=== PATIENT | female | born 1965 | race Caucasian/White ===

== ENCOUNTER 2019-09-19 09:08 | Observation (INO) | payer OTHER, SELFPAY | END 2019-09-20 13:18 | disposition home or self-care (01) | PROVIDERS: Admitting Provider Obstetrics & Gynecology; Family Provider Family Medicine; Visit Provider Obstetrics & Gynecology | DX: N95.0 Postmenopausal bleeding (principal); D25.9 Leiomyoma of uterus, unspecified; K21.9 Gastro-esophageal reflux disease without esophagitis | CPT/HCPCS: 36415; 58262; 80053; 81001; 85025; 85027; 86850; 86900; 86901; 88307; 96374; G0378 ×113; J0131; J1100; J1885 ×2; J2001; J2250; J2405; J2704; J3010; J3490 ×3 ==

== ENCOUNTER → 2019-11-02 15:22 | Outpatient (BNVA) | payer OTHER, SELFPAY | PROVIDERS: Family Provider Family Medicine; PCP Family Medicine; Visit Provider Obstetrics & Gynecology | DX: R31.9 Hematuria, unspecified (principal); Z48.89 Encounter for other specified surgical aftercare; N89.8 Other specified noninflammatory disorders of vagina | CPT/HCPCS: 84315; 87086 ==

== ENCOUNTER → 2019-11-16 13:37 | Outpatient (BNVA) | payer OTHER, SELFPAY | PROVIDERS: Family Provider Family Medicine; PCP Family Medicine; Referring Provider Obstetrics & Gynecology; Visit Provider Obstetrics & Gynecology | DX: R31.9 Hematuria, unspecified (principal) | CPT/HCPCS: 81003 ==

== ENCOUNTER → 2020-01-14 14:10 | Outpatient (BNVA) | payer OTHER, SELFPAY | PROVIDERS: Family Provider Family Medicine; PCP Family Medicine; Visit Provider Nurse Practitioner Family | DX: N39.9 Disorder of urinary system, unspecified (principal); R31.29 Other microscopic hematuria | CPT/HCPCS: 81001 ==

== ENCOUNTER → 2020-01-25 11:49 | Outpatient (BNVA) | payer OTHER, SELFPAY | PROVIDERS: Family Provider Family Medicine; PCP Family Medicine; Visit Provider Urology | DX: R31.29 Other microscopic hematuria (principal) | CPT/HCPCS: 88112 ==

== ENCOUNTER → 2020-04-23 15:17 | Outpatient (BNVA) | payer OTHER, SELFPAY | PROVIDERS: Family Provider Family Medicine; PCP Family Medicine; Visit Provider Urology | DX: R31.29 Other microscopic hematuria (principal) | CPT/HCPCS: 81001 ==

== ENCOUNTER 2020-07-03 14:57 | Outpatient (CLI) | payer OTHER, SELFPAY ==
--- NOTE | 2020-07-03 15:04 | MM_ITS ---
WS: [id number] BILATERAL SCREENING DIGITAL MAMMOGRAM WITH CAD HISTORY: SCREENING COMPARISON: 05/11/2019 and 04/28/2018 and 04/26/2017 Bilateral CC and MLO views submitted. Computer aided detection analyzed. Breast composition: There are scattered areas of fibroglandular density. No suspicious masses, microc alcifications or architectural distortion. Stable nodule in the central LEFT breast. MM/[id number] IMPRESSION: BI-RADS: 2-Benign FOLLOW UP: 1 Year Follow-up
== END 2020-07-03 14:58 | disposition home or self-care (01) ==
LOC: RADSHAW 15:01
PROVIDERS: PCP Family Medicine; Visit Provider Family Medicine
DX: Z12.31 Encounter for screening mammogram for malignant neoplasm of breast (principal)
CPT/HCPCS: 77067

== ENCOUNTER 2021-08-10 15:10 | Outpatient (CLI) | payer OTHER, SELFPAY ==
--- NOTE | 2021-08-10 15:21 | MM_ITS ---
WS: [id number] BILATERAL SCREENING DIGITAL MAMMOGRAM WITH CAD HISTORY: SCREENING COMPARISON: 07/03/2020 and 05/11/2019 Bilateral CC and MLO views submitted. Computer aided detection analyzed. Breast composition: There are scattered areas of fibroglandular density. No suspicious masses, microc alcifications or architectural distortion. 8mm nodule in the posterior LEFT breast central to the nip ple is unchanged. MM/[id number] IMPRESSION: BI-RADS: 2-Benign FOLLOW UP: 1 Year Follow-up
== END 2021-08-10 15:11 | disposition home or self-care (01) ==
LOC: RADSHAW 15:12
PROVIDERS: PCP Electrodiagnostic Medicine; Visit Provider Electrodiagnostic Medicine
DX: Z12.31 Encounter for screening mammogram for malignant neoplasm of breast (principal)
CPT/HCPCS: 77067

== ENCOUNTER 2022-09-03 14:56 | Outpatient (CLI) | payer OTHER, SELFPAY ==
--- NOTE | 2022-09-03 15:12 | MM_ITS ---
WS: [id number] BILATERAL 3D TOMOSYNTHESIS DIGITAL SCREENING MAMMOGRAPHY WITH CAD CLINICAL INFORMATION: SCREENING HISTORY: Screening mammogram. No current complaints. COMPARISON: September 03, 2022 TECHNIQUE: Bilateral CC and MLO views. FINDINGS: Scattered fibroglandular densities bilaterally. No suspicious focal mass, asymmetry, calcifications, or architectural distortion. No evidence of malignancy. Lucent centered calcification LEFT breast. MM/[place] [id number] IMPRESSION: BI-RADS: 2-Benign FOLLOW UP: 1 Year Follow-up Recommend return to annual screening mammography.
== END 2022-09-03 14:57 | disposition home or self-care (01) ==
PROVIDERS: PCP Electrodiagnostic Medicine; Visit Provider Electrodiagnostic Medicine
DX: Z12.31 Encounter for screening mammogram for malignant neoplasm of breast (principal)
CPT/HCPCS: 77063; 77067

== ENCOUNTER → 2023-05-30 15:00 | Outpatient (BNVA) | payer OTHER, SELFPAY | PROVIDERS: PCP Electrodiagnostic Medicine; Visit Provider Obstetrics & Gynecology | DX: R30.0 Dysuria (principal) | CPT/HCPCS: 87086 ==

== ENCOUNTER 2023-09-09 13:42 | Outpatient (CLI) | payer OTHER, SELFPAY ==
--- NOTE | 2023-09-09 13:50 | MM_ITS ---
WS: [id number] BILATERAL 3D TOMOSYNTHESIS DIGITAL SCREENING MAMMOGRAPHY WITH CAD CLINICAL INFORMATION: SCREENING HISTORY: Screening mammogram. No current complaints. COMPARISON: 2021 TECHNIQUE: Bilateral CC and MLO views. FINDINGS: Scattered fibroglandular densities bilaterally. No suspicious focal mass, asymmetry, calcifications, or architectural distortion. No evidence of malignancy. Lucent centered calcification LEFT breast. St able nodular densities LEFT breast. IMPRESSION: MM/[place] [id number] BI-RADS: 2-Benign FOLLOW UP: 1 Year Follow-up Recommend return to annual screening mammography.
== END 2023-09-09 13:43 | disposition home or self-care (01) ==
LOC: RAD 13:43
PROVIDERS: PCP Electrodiagnostic Medicine; Visit Provider Electrodiagnostic Medicine
DX: Z12.31 Encounter for screening mammogram for malignant neoplasm of breast (principal)
CPT/HCPCS: 77063; 77067

== ENCOUNTER 2024-06-26 07:36 | Outpatient (CLI) | payer OTHER, SELFPAY ==
--- NOTE | 2024-06-26 07:46 | MR_ITS ---
WS: [id number] MRI BRAIN WITH HIGH-RESOLUTION IMAGING THROUGH THE INTERNAL AUDITORY CANALS WITHOUT AND WITH CONTRAST HISTORY: HEARING LOSS COMPARISON: None available. TECHNIQUE: Multiplanar, multisequence imaging is performed through the brain. Additional 3 mm imaging performed in multiple planes through the internal auditory canal. Postcontrast imaging with 14 ml's of MultiHance. No acute intracranial hemorrhage, midline shift, edema or mass effect. No prior infarct or volume loss. Normal hippocampal formations. Ventricles and extra-axial spaces are normal. No inferior displacement of cerebellar tonsils. Clivus and pituitary gland are normal. Internal and external auditory canals: Unremarkable. Cranial nerves VII and VIII complexes: Unremarkable. No enhancement or mass. Cerebellopontine angles: Normal. Paranasal sinuses: Normal. Mastoid air cells: Normal. Calvarium and scalp: Normal. [place] of [place] is negative as visualized. Dural venous sinuses are patent. There is tortuous overla pping dilated RIGHT jugular vein at the skull base. Prominent vessels contiguous with cervical venous plexus at the skull base and upper cervical spine. There are multiple tortuous varicosities. No thro mbus. MR/MR iac's wo/w con* [id number] IMPRESSION: 1. No mass or abnormal enhancement at the internal or external auditory canals along the 5th cranial nerve. 2. No prior infarct send no enhancing mass within the brain. 3. Normal hippocampal formations.
[2024-06-26] MEDS: gadobenate dimeglumine 20 mL vial IV (08:22)
== END 2024-06-26 07:37 | disposition home or self-care (01) ==
LOC: RAD 07:37
PROVIDERS: PCP Electrodiagnostic Medicine; Visit Provider Specialist
DX: H91.93 Unspecified hearing loss, bilateral (principal)
CPT/HCPCS: 70553

== ENCOUNTER 2024-08-05 17:53 | Emergency (ER) | payer OTHER, SELFPAY ==
[2024-08-05] VITALS (10 sets, daily range): BP systolic 117–133; BP diastolic 65–81; PULSE 68–89; RESP 16–33; TEMP 36.6; O2SAT 98–100; BMI 24.1
--- NOTE | 2024-08-05 17:56 | ECG_ITS ---
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 Measurements Intervals [place] Rate: 88 P: 79 CO: 168 QRS: 80 QRSD: 80 T: 61 QT: 354 QTc: 430 Interpretive Statements SINUS RHYTHM No previous ECG available for comparison Electronically Signed On 08-09-2024 21:19:34 SENIOR MORTGAGE UNDERWRITER by Lily Rios M.D. [id number]
--- NOTE | 2024-08-05 19:57 | XRR_ITS ---
PROCEDURE INFORMATION: Exam: XR Chest Exam date and time: 08/05/2024 8:03 PM Age: 59 years old Clinical indication: Other: Palpitations TECHNIQUE: Imaging protocol: Radiologic exam of the chest. Views: 1 view. COMPARISON: No relevant prior studies available. FINDINGS: Lungs: Unremarkable. No consolidation. Pleural spaces: Unremarkable. No pleural effusion. No pneumothorax. Heart/Mediastinum: Unremarkable. No cardiomegaly. Bones/joints: Unremarkable. XR/XR chest 1V portable [id number] IMPRESSION: No acute findings.
[2024-08-05 20:07] LABS: Basophils # 0.1 10^3/uL (0.0-0.1); Basophils % 0.7 %; Eosinophils # 0.1 10^3/uL (0.0-0.8); Eosinophils % 0.6 %; Hematocrit 39.5 % (36-47); Lymphocytes # 1.2 10^3/uL (0.8-4.8); Mean Corpuscular HGB Conc 31.9 g/dL (30-55); Mean Corpuscular Hemoglobin 28.2 pg (27-33); Mean Corpuscular Volume 88.4 fl (85-98); Mean Platelet Volume 10.2 fL (7.4-10.4); Monocytes # 0.5 10^3/uL (0.2-0.9); Monocytes % 4.7 %; Neutrophils # 8.88 10^3/uL (1.8-7.7); Neutrophils % 82.4 %; Nucleated Red Blood Cells % 0 %; Platelet Count 310 10^3/cmm (157-399); Red Blood Count 4.47 10^6/uL (3.85-5.65); White Blood Count 10.77 10^3/uL (3.29-11.43)
--- NOTE | 2024-08-05 20:21 | ED_ITS ---
HPI - General Adult 2 General: Chief complaint: General Medical Stated complaint: irregular heartbeat Time Seen by Provider: 08/05/24 19:37 History of Present Illness: 59-year-old female no prior history of c oronary disease or other heart disease. She presents with palpitations that started this afternoon. They did not seem to improve on their own. She took lorazepam at home, without much improvement. She believes it is beginning to work now, she is no longer having palpitations. No overt chest pain. No significant shortness of breath. Related Data Home Medications Medication Instructions Recorded Confirmed lorazepam 0.5 mg tablet 0.5 mg PO DAILY PRN 08/10/21 09/09/23 Lactobacillus rhamnosus GG 5 1 tab PO DAILY 05/30/23 09/09/23 billion cell chewable tablet (Culturelle Kids Probiotics) ajiuaid-cqshjwztxjnjy-xhsqcety 250 1 tab PO Q6H PRN 05/30/23 09/09/23 mg-250 mg-65 mg tablet (Excedrin Migraine) levocetirizine 5 mg tablet (Xyzal) 5 mg PO DAILY 05/30/23 09/09/23 omeprazole 40 mg capsule,delayed 40 mg PO DAILY PRN 05/30/23 09/09/23 release Previous Rx's Medication Instructions Recorded estradiol 0.01% (0.1 mg/gram) 1 appful vaginal DAILY #1 g 02/09/24 vaginal cream Allergies Allergy/AdvReac Type Severity Reaction Status Date / Time No Known Drug Allergies Allergy none Verified 08/05/24 18:04 [facility] ED 2 PFSH: Medical History Aftercare following surgery of the genitourinary system Well woman exam with routine gynecological exam Postmenopausal bleeding Microscopic hematuria Surgical History History of hysteroscopy with polypectomy via hysteroscopic morcellation- performed on 07/05/[address] Shelby at [facility] History of total vaginal hysterectomy with bilateral salpingo-oophorectomy- performed on 09/19/[address] Shelby at [facility] Family History Father Heart disease Lymphoma Sister Family history of thyroid problem Mother Lymphoma Denies family history of Colon cancer Ovarian cancer Diabetes Clotting disorder Hyperlipidemia Breast cancer Anesthesia complication Bleeding disorder Hypertension Uterine cancer Stroke Social History Smoking and tobacco/nicotine status: never used tobacco/nicotine Alcohol intake: never Substance/Drug Use: never Physical Exam 2 Const: COMMON NORMALS: no acute distress GENERAL APPEARANCE: cooperative; not ill appearing and not frail appearing HENMT: COMMON NORMALS: normocephalic, atraumatic and Normal external nose present HEAD & SCALP: normocephalic and atraumatic FACE & SINUS: normal facial exam and face symmetric NOSE: Normal external nose present Eye: COMMON NORMALS: Equal, round and reactive pupils present and EOMs intact bilaterally PUPIL: Yes Equal, round and reactive pupils present Neck/C-Spine: GENERAL: Yes trachea midline Chest: CHEST: Yes Symmetrical chest wall rise Resp: COMMON NORMALS: normal respiratory effort, No retractions, No use of accessory muscles and clear to auscultation bilaterally AUSCULTATION: clear to auscultation bilaterally Cardio: COMMON NORMALS: regular rate and regular rhythm RATE: regular rate RHYTHM: regular rhythm GI: COMMON NORMALS: Normal to inspection, nondistended, normoactive bowel sounds present Extremity: COMMON NORMALS: no pedal edema Neuro: NINA COMA SCALE: document GCS findings Nina coma scale eye opening: Spontaneous [place] coma scale verbal response: Orientated Nina coma scale motor response: Obey commands [place] coma scale total score: 15 S ENSORY EXAM: Yes extremities (intact) Psych: COMMON NORMALS: speech normal SPEECH: Yes normal speech Skin: COMMON NORMALS: no rashes or lesions noted GENERAL SKIN EXAM: no rashes or lesions noted Course 2 Vital Signs: Vital signs: Vital Signs Temperature 97.9 F 08/05/24 17:59 Pulse Rate 71 08/05/24 21:29 Respiratory Rate 16 08/05/24 21:29 Blood Pressure 118/70 08/05/24 21:29 Pulse Oximetry 98 08/05/24 21:29 Oxygen Delivery Me thod Room Air 08/05/24 19:50 MDM - General Adult Medical Decision Making Patient no longer appears anxious. Her vitals are good. She is not hypertensive. CBC and BMP are normal. TSH is normal at 2. Magnesium is 2 as well. BNP is 95, troponin is nondetectable. With improvement in her symptoms. She will be allowed discharge. EKG was normal. Outpatient follow-up. Return for new or worsening symptoms peer Lab Data 08/05/24 20:00 08/05/24 20:00 Radiology Impressions Chest X-Ray 08/05/24 19:57 IMPRESSION: No acute findings. Laboratory Results WBC 10.77 10^3/uL (3.29-11.43) 08/05/24 20:00 RBC 4.47 10^6/uL (3.85-5.65) 08/05/24 20:00 Hgb 12.60 g/dL (11.27-16.99) 08/05/24 20:00 Hct 39.5 % (36-47) 08/05/24 20:00 MCV 88.4 fl (85-98) 08/05/24 20:00 MCH 28.2 pg (27-33) 08/05/24 20:00 MCHC 31.9 g/dL (30-55) 08/05/24 20:00 RDW 13.0 % (12.1-15.1) 08/05/24 20:00 Plt Count 310 10^3/cmm (157-399) 08/05/24 20:00 MPV 10.2 fL (7.4-10.4) 08/05/24 20:00 Neut % (Auto) 82.4 % 08/05/24 20:00 Lymph % (Auto) 11.0 % 08/05/24 20:00 [place] % (Auto) 4.7 % 08/05/24 20:00 Eos % (Auto) 0.6 % 08/05/24 20:00 Baso % (Auto) 0.7 % 08/05/24 20:00 Neut # (Auto) 8.88 10^3/uL (1.8-7.7) H 08/05/24 20:00 Lymph # (Auto) 1.2 10^3/uL (0.8-4.8) 08/05/24 20:00 [place] # (Auto) 0.5 10^3/uL (0.2-0.9) 08/05/24 20:00 Eos # (Auto) 0.1 10^3/uL (0.0-0.8) 08/05/24 20:00 Baso # (Auto) 0.1 10^3/uL (0.0-0.1) 08/05/24 20:00 Nucleated RBC % (auto) 0 % 08/05/24 20:00 Nucleated RBCs # 0.0 /100WBC 08/05/24 20:00 Sodium 139 mmol/L (136-145) 08/05/24 20:00 Potassium 4.1 mmol/L (3.5-5.1) 08/05/24 20:00 Chloride 103 mmol/L (98-107) 08/05/24 20:00 Carbon Dioxide 26 mmol/L (22-29) 08/05/24 20:00 Anion Gap 14.1 (5-19) 08/05/24 20:00 BUN 19 mg/dL (6-20) 08/05/24 20:00 Creatinine 0.8 mg/dL (0.5-0.9) 08/05/24 20:00 GFR Calculation 73.4 mL/min (90-130) L 08/05/24 20:00 Glucose 97 mg/dL (65-115) 08/05/24 20:00 Calculated Osmolality 290 mOsm/kg (285-295) 08/05/24 20:00 Calcium 8.9 mg/dL (8.5-10.5) 08/05/24 20:00 Magnesium 2.0 mg/dL (1.7-2.3) 08/05/24 20:00 Total Bilirubin 0.2 mg/dL (0.15-1.2) 08/05/24 20:00 AST 26 U/L (0-32) 08/05/24 20:00 ALT 16 U/L (0-33) 08/05/24 20:00 Alkaline Phosphatase 94 U/L (35-105) 08/05/24 20:00 Creatine Kinase 88 U/L (26-192) 08/05/24 20:00 Troponin T Baseline < 6 ng/L (0-10) 08/05/24 20:00 NT-Pro-B Natriuret Pep 95 pg/mL (0-125) 08/05/24 20:00 Total Protein 7.1 g/dL (6.6-8.7) 08/05/24 20:00 Albumin 4.3 g/dL (3.5-5.2) 08/05/24 20:00 Globulin 2.8 g/dL (1.3-4.6) 08/05/24 20:00 TSH 2.11 uIU/mL (0.27-4.20) 08/05/24 20:00 All radiology interpretation(s) finalized by discharge Discharge Plan Discharge Patient Disposition: Home Clinical Impression: Palpitations Condition: Stable Prescriptions: No Action lorazepam 0.5 mg tablet 0.5 mg PO DAILY PRN omeprazole 40 mg capsule,delayed release(DR/EC) 40 mg PO DAILY PRN Excedrin Migraine 250-250-65 mg tablet 1 tab PO Q6H PRN levocetirizine [Xyzal] 5 mg tablet 5 mg PO DAILY Culturelle Kids Probiotics 5 billion cell tablet,chewable 1 tab PO DAILY estradiol 0.01 % (0.1 mg/gram) cream 1 appful vaginal DAILY Qty: 1 2RF Rx Instructions: Use once weekly for 1 month, then decrease to every other month Discharge Orders: Discharge ED (Routine); Ordered 08/05/24 Ordered By: Andrea Epstein Referrals: Titi Romero DO [Primary Care Provider] - 1-3 days Patient Instructions: Heart Palpitations (ED), Opioid Safety, Pain Management Activity Restrictions/Additional Instructions: Return for return of fast or irregular heartbeat, development of chest discomfort, shortness of breath, other concerning symptoms. Call your doctor this week for an appointment for follow-up. 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
[2024-08-05 20:26] LABS: Troponin(5th) Baseline < 6 ng/L (0-10)
[2024-08-05 20:35] LABS: Alanine Aminotransferase 16 U/L (0-33); Albumin Level 4.3 g/dL (3.5-5.2); Alkaline Phosphatase 94 U/L (35-105); Anion Gap 14.1 (5-19); Aspartate Amino Transferase 26 U/L (0-32); Blood Urea Nitrogen 19 mg/dL (6-20); Calcium 8.9 mg/dL (8.5-10.5); Carbon Dioxide 26 mmol/L (22-29); Chloride 103 mmol/L (98-107); Creatine Phosphokinase 88 U/L (26-192); Creatinine Clr Calc Pharmacy 72.3264; Globulin 2.8 g/dL (1.3-4.6); Glomerular Filtration Rate 73.4 mL/min (90-130); Glucose 97 mg/dL (65-115); NT Pro B Type Natriuretic Pept 95 pg/mL (0-125); Osmolality Calculated 290 mOsm/kg (285-295); Potassium 4.1 mmol/L (3.5-5.1); Sodium 139 mmol/L (136-145); Thyroid Stimulating Hormone 2.11 uIU/mL (0.27-4.20); Total Bilirubin 0.2 mg/dL (0.15-1.2); Total Protein 7.1 g/dL (6.6-8.7)
== END 2024-08-05 21:31 | disposition home or self-care (01) ==
PROVIDERS: Emergency Provider Emergency Medicine; PCP Electrodiagnostic Medicine
DX: R00.2 Palpitations (principal)
CPT/HCPCS: 71045; 80053; 82550; 83735; 83880; 84443; 84484; 85025; 93005; 99285

== ENCOUNTER 2024-09-11 14:17 | Outpatient (CLI) | payer OTHER, SELFPAY ==
--- NOTE | 2024-09-11 | MM_ITS ---
WS: [id number] VIEWS: MLO and CC views both breasts. 3D digital tomosynthesis is also included in this exam. Comparison made with prior exam of 02/22/2013, 10/16/2010, 02/28/2014, 03/25/2015, 04/16/2016, 04/26/2017, 04/28/2018, 05/11/2019, 07/03/2020, 08/10/2021, 09/03/2022, 09/09/2023.. Findings: There are scattered areas of fibroglandular density. No sign of suspicious mass, tumor calcification or architectural distortion. Stable appearing nodules in the LEFT breast. MM/MM scr BI tomosynthesis [id number] Impression: BI-RADS: 2 - Benign. FOLLOW-UP: 1 Year Follow-up This mammogram was also analyzed by the Computer Aided Detection System [employer].
== END 2024-09-11 14:18 | disposition home or self-care (01) ==
PROVIDERS: PCP Electrodiagnostic Medicine; Visit Provider Electrodiagnostic Medicine
DX: Z12.31 Encounter for screening mammogram for malignant neoplasm of breast (principal); R92.323 Mammographic fibroglandular density, bilateral breasts
CPT/HCPCS: 77063; 77067

== ENCOUNTER 2025-09-12 14:41 | Outpatient (CLI) | payer OTHER, SELFPAY ==
--- NOTE | 2025-09-12 14:44 | MM_ITS ---
WS: [id number] BILATERAL 3D TOMOSYNTHESIS DIGITAL SCREENING MAMMOGRAPHY WITH CAD CLINICAL INFORMATION: SCREENING HISTORY: Screening mammogram. No current complaints. COMPARISON: None. TECHNIQUE: Bilateral CC and MLO views. FINDINGS: Scattered fibroglandular densities bilaterally. No suspicious focal mass, asymmetry, calcifications, or architectural distortion. No evidence of malignancy. Lucent-centered calcification LEFT breast MM/MM scr BI tomosynthesis [id number] IMPRESSION: DENSITY: There are scattered areas of fibroglandular density. BI-RADS: 2 - Benign. FOLLOW UP: 1 Year Follow-up Recommend return to annual screening mammography.
== END 2025-09-12 14:42 | disposition home or self-care (01) ==
LOC: RAD 14:42
PROVIDERS: PCP Electrodiagnostic Medicine; Visit Provider Electrodiagnostic Medicine
DX: Z12.31 Encounter for screening mammogram for malignant neoplasm of breast (principal); R92.323 Mammographic fibroglandular density, bilateral breasts; R92.1 Mammographic calcification found on diagnostic imaging of breast
CPT/HCPCS: 77063; 77067